=== PATIENT | female | born 1990 | race Two or more races ===

== ENCOUNTER 2023-12-26 15:11 | Inpatient (IN) | payer OTHER ==
[~2023-12-26] VITALS: Ht 157.5 cm; Wt 80.7 kg
[2024-01-01] MEDS ORDERED: METRONIDAZOLE/SODIUM CHLORIDE 500 MG/100 ML PIGGYBACK IV ONE (09:37)
[2024-01-01] MEDS ORDERED: CEFTRIAXONE SODIUM 2,000 MG VIAL ONE (09:37)
[2024-01-01] MEDS ORDERED: LIDOCAINE HCL 1%/EPINEPHRINE 20ML VIAL IJ ONE (13:33)
[2024-01-01] MEDS ORDERED: BUPIVACAINE HCL/Mpf 0.5% 10ML VIAL ONE (13:33)
[2024-01-01] MEDS ORDERED: POVIDONE-IODINE 118 ML BOTT TOP ONE (13:37)
[2024-01-01] MEDS ORDERED: VISTASEAL DUAL APPICATOR 1 EACH APPL TOP ONE (14:04)
[2024-01-01] MEDS ORDERED: THROMBIN,HU/FIBRINOGEN/CALCIUM 10 ML SYRINGE TOP ONE (14:04)
[2024-01-01] MEDS ORDERED: CELECOXIB 200 MG CAPSULE PO STA (16:03)
[2024-01-01] MEDS ORDERED: GABAPENTIN 100 MG CAPSULE PO SCH (17:00)
[2024-01-01] MEDS ORDERED: RINGERS SOLUTION,LACTATED 1,000 ML IV SCH (17:00)
[2024-01-01] MEDS ORDERED: ONDANSETRON HCL 2 MG/ML VIAL IV SCH (17:00)
[2024-01-01] MEDS ORDERED: CEFOXITIN SODIUM 2,000 MG VIAL IV SCH (17:00)
[2024-01-01] MEDS ORDERED: ONDANSETRON HCL 2 MG/ML VIAL ONE (17:36)
[2024-01-01] MEDS ORDERED: CEFOXITIN SODIUM 2,000 MG VIAL IV ONE (17:37)
[2024-01-01] MEDS ORDERED: ENALAPRILAT DIHYDRATE 1.25 MG/ML VIAL IV PRN (17:45)
[2024-01-01] MEDS ORDERED: MORPHINE SULFATE 4 MG/ML VIAL IV PRN (18:00)
[2024-01-01] MEDS ORDERED: ACETAMINOPHEN 325 MG TABLET PO SCH (18:00)
[2024-01-01 18:26] LABS: HEMATOCRIT 35.6 % (36.0-45.00); HEMOGLOBIN 11.8 g/dL (12.0-15.00); MEAN CELL VOLUME 84.8 fL (80.00-100.00); MEAN CORPUSCULAR HEMOGLOBIN 28.1 pg (27.00-32.0); MEAN CORPUSCULAR HGB CONC 33.1 g/dl (32.0-36.0); PLATELET COUNT 423 K/uL (150-450); RED CELL DISTRIBUTION WIDTH 13.2 % (11.5-14.5)
[2024-01-01 18:47] LABS: CREATININE SERUM 1.39 mg/dL (0.55-1.02); GFR 43.4; POTASSIUM 3.84 mEq/L (3.5-5.1)
[2024-01-01 19:20] VITALS: BP 162/91; O2SAT 99
[2024-01-02 00:51] VITALS: BP 142/83; O2SAT 100
[2024-01-02 08:01] VITALS: BP 133/83; O2SAT 98
[2024-01-02] MEDS ORDERED: CELECOXIB 200 MG CAPSULE PO STA (08:03)
[2024-01-02 12:46] LABS: CALCIUM 9.1 mg/dL (8.5-10.1); CREATININE SERUM 0.77 mg/dL (0.55-1.02); GFR 85.81; POTASSIUM 4.26 mEq/L (3.5-5.1)
== END 2024-01-02 14:41 | disposition home or self-care (01) | DRG 743 ==
LOC: O/R 01-01 06:26 → SURG 01-01 12:00 → SURH 01-01 18:50
PROVIDERS: Surgery; ADMIT Obstetrics & Gynecology Gynecology; ATTEND Obstetrics & Gynecology Gynecology
PROC: 0DN84ZZ Release Small Intestine, Percutaneous Endoscopic Approach (ICD-10-PCS; 2024-01-01)
PROC: 0UN94ZZ Release Uterus, Percutaneous Endoscopic Approach (ICD-10-PCS; 2024-01-01)
PROC: 0T788DZ Dilation of Bilateral Ureters with Intraluminal Device, Via Natural or Artificial Opening Endoscopic (ICD-10-PCS; 2024-01-01)
PROC: 0UT94ZZ Resection of Uterus, Percutaneous Endoscopic Approach (ICD-10-PCS; principal; 2024-01-01 12:45)
PROC: 0UT74ZZ Resection of Bilateral Fallopian Tubes, Percutaneous Endoscopic Approach (ICD-10-PCS; 2024-01-01 12:45)
PROC: 0DNW4ZZ Release Peritoneum, Percutaneous Endoscopic Approach (ICD-10-PCS; 2024-01-01 12:45)
DX: D25.2 Subserosal leiomyoma of uterus (principal); N73.6 Female pelvic peritoneal adhesions (postinfective); N80.519 Endometriosis of the rectum, unspecified depth; Z20.822 Contact with and (suspected) exposure to COVID-19; N72 Inflammatory disease of cervix uteri; N80.03 Adenomyosis of the uterus